=== PATIENT | female | born 1980 | race Caucasian/White ===

== ENCOUNTER 2021-08-19 05:23 | Emergency (ER) | payer OTHER, MEDICAID, SELFPAY ==
[2021-08-19 05:47] VITALS: BP 138/64; PULSE 87; RESP 17; TEMP 36.6; O2SAT 100; BMI 25.1
--- NOTE | 2021-08-19 06:07 | ED_ITS ---
HPI - Dental/Oral General Chief complaint: Dental/Oral Stated complaint: covid + tooth pain and jaw pain left side Time Seen by Provider: 08/19/21 05:50 Source: patient Mode of arrival: Ambulatory Limitations: no limitations History of Present Illness HPI Narrative: This is a 41-year-old female who denies other medical issues but did test positive for COVID in the past 6 days who presents with complaint of worsening dental pain. Patient states she is had dental issues for several months, she missed her appointment for dental extraction about a month ago she is scheduled in about another month to have the tooth extracted has had increasing pain with some localized swelling. She was having fevers this week but they have stopped in the last 2 days. She has not had any facial swelling, no redness skin color changes. She has not had any swelling of her airway, tongue or underneath the tongue. No changes to speech. No nausea or vomiting. No other GI or urinary symptoms. She is tried [id number] migraine medication with minimal improvement and Anbesol which she states makes it feel worse. Patient states she is allergic to penicillin but has had amoxicillin in the past without issue. She denies any other daily medications. Related Data Home Medications Medication Instructions Recorded Confirmed Fluoxetine Hydrochloride 20 mg PO QDAY ##0 02/26/11 (FLUOXETINE) NAPROXEN (NAPROSYN) 500 mg PO BIDCC ##0 02/26/11 Previous Rx's Medication Instructions Recorded THYROID (#ARMOUR THYROID) 30 mg PO Q DAY #30 tabs 03/27/11 Trazodone Hydrochloride (TRAZODONE) 50 mg PO HS #30 tabs 03/27/11 amoxicillin 500 mg tablet 500 mg PO TID #30 tabs 08/19/21 Allergies Allergy/AdvReac Type Severity Reaction Status Date / Time Penicillins Allergy Verified 08/19/21 05:47 Review of Systems Review of Systems ROS Unobtainable: All systems reviewed & are unremarkable except as noted in HPI and below Patient History Social History Smoking Status: Current every day smoker Exam Narrative Exam Narrative: GEN: Female, alert and oriented x 3, patient appears to be in mild distress. HEENT: Atraumatic, pupils are equal round reactive to light, extraocular movements are intact, nares are clear, TMs are clear with no fluid, there is no conjunctival pallor. Throat is clear without any exudates, erythema, tonsillar enlargement or uvular deviation, patient has poor dentition throughout. Tooth #30 does appear to have cracked. There is some mild swelling but no fluctuence or fluid collection. HEART: Regular rate and rhythm without murmur, clicks, rubs. No carotid bruits, pulses are equal in upper and lower extremities LUNGS:Lungs clear to auscultation, no wheezes, rales, crackles, chest moves symmetrically ABD:bowel sounds normal, soft, non-tender, no guarding, rebound, rigidity, no masses noted, no hepatosplenomegaly MSCL: Non-tender, full range of motion, normal gait NEURO:CN 2-12 intact, sensation normal Initial Vital Signs Initial Vital Signs: Vital Signs Temperature 98 F 08/19/21 05:47 Pulse Rate 87 08/19/21 05:47 Respiratory Rate 17 08/19/21 05:47 Blood Pressure 138/64 08/19/21 05:47 Pulse Oximetry 100 08/19/21 05:47 Oxygen Delivery Method 08/19/21 05:47 Course Orders Ordered: Discontinued Medications Amoxicillin (Amoxicillin 250 Mg Capsule) 500 mg PO NOW ONE Stop: 08/19/21 06:15 Last Admin: 08/19/21 06:19 Dose: 500 mg Documented By: NOHEMY Ketorolac Tromethamine (Ketorolac 30 Mg/Ml Vial) 30 mg IM NOW ONE Stop: 08/19/21 06:15 Last Admin: 08/19/21 06:20 Dose: 30 mg Documented By: NOHEMY Vital Signs Vital signs: Vital Signs - 8 hr 08/19/21 05:47 08/19/21 06:43 Temperature 98 F Pulse Rate 87 Respiratory Rate 17 15 Blood Pressure 138/64 Pulse Oximetry 100 99 Oxygen Delivery Method Room Air Room Air MDM - Dental/Oral MDM Narrative Medical decision making narrative: This is a 41-year-old female who presents with complaint of increasing dental pain. Patient has had recent COVID infection she states fevers have broke she feels that she is starting to improve. She was supposed to have 1 of her teeth extracted on he left but missed that appointment and has had increasing pain for the past 2 months which became too intense today and she presents for evaluation. Patient appears to have some localized infection and was covered with an oral antibiotic. Discharge Plan Departure Patient Disposition: Home Clinical Impression: Dental abscess Instructions: DI for Dental Pain Activity Restrictions/Additional Instructions: Follow up with your dentist. Take antibiotics until gone. You can take Tylenol up to a 1000 mg every 6 hours and/or ibuprofen up to 600 mg every 6 hours. Prescription for antibiotics sent to [facility] in [place]. Please return for new fevers, increasing swelling, redness, difficulty breathing, persistent vomiting, rapidly worsening symptoms or other new or concerning changes. Prescriptions: New amoxicillin 500 mg tablet 500 mg PO TID Qty: 30 0RF No Action Fluoxetine Hydrochloride (FLUOXETINE) 20 mg PO QDAY Qty: 0 NAPROXEN (NAPROSYN) 500 mg PO BIDCC Qty: 0 THYROID (#ARMOUR THYROID) 30 mg PO Q DAY Qty: 30 2RF Trazodone Hydrochloride (TRAZODONE) 50 mg PO HS Qty: 30 0RF Referrals: Magdalena Childers DO [Primary Care Provider] - Visit Report Forms: Patient Portal/API
[2021-08-19] MEDS: AMOXICILLIN 250 MG CAPSULE 500 MG PO (06:19)
[2021-08-19] MEDS: KETOROLAC 30 MG/ML VIAL IM (06:20)
[2021-08-19 06:43] VITALS: RESP 15; O2SAT 99
== END 2021-08-19 06:44 | disposition home or self-care (01) ==
PROVIDERS: Emergency Provider Emergency Medicine; Family Provider Family Medicine; PCP Family Medicine
DX: K04.7 Periapical abscess without sinus (principal)
CPT/HCPCS: 96372; 99283; J1885

== ENCOUNTER → 2024-03-26 17:33 | Outpatient (CLI) | payer OTHER, SELFPAY ==
[2024-03-26 18:41] LABS: Pregnancy Test Urine Negative (Negative)
[2024-03-26 19:16] LABS: COVID-19 CEPHEID 4-PLEX PCR Negative (Negative); Influenza A - CEPHEID Flu A NEGATIVE (NEGATIVE); Influenza B - CEPHEID Flu B NEGATIVE (NEGATIVE); Respiratory Syncytial Virus Negative (Negative)
== END ==
PROVIDERS: Family Provider Family Medicine; PCP Family Medicine; Visit Provider Student in an Organized Health Care Education/Training Program
DX: N94.9 Unspecified condition associated with female genital organs and menstrual cycle (principal); N89.8 Other specified noninflammatory disorders of vagina; R51.9 Headache, unspecified; R10.2 Pelvic and perineal pain
CPT/HCPCS: 87635; 87400 ×2; 87420; 0241U; 81002; 81025; 87077; 87086; 87186; 87210

== ENCOUNTER 2024-11-12 18:17 | Emergency (ER) | payer OTHER, SELFPAY ==
[2024-11-12 18:25] VITALS: BP 135/67; PULSE 90; RESP 16; TEMP 36.4; O2SAT 100; BMI 23.7
== END 2024-11-13 02:08 | disposition left against medical advice (07) ==
PROVIDERS: Emergency Provider Emergency Medicine; Family Provider Family Medicine; PCP Family Medicine
CPT/HCPCS: 99281

== ENCOUNTER 2024-11-14 07:44 | Emergency (ER) | payer OTHER, SELFPAY ==
[2024-11-14] VITALS (9 sets, daily range): BP systolic 118–120; BP diastolic 75–76; PULSE 74–112; RESP 17; TEMP 36.6; O2SAT 98–100; BMI 23.7
[2024-11-14 08:31] LABS: Add Manual Diff / Slide Review NO; Hematocrit 40.6 % (36-46); Hemoglobin 13.8 g/dL (12.0-16.0); Lymphocytes Absolute Auto 1600 /uL (1100-4500); Mean Corpuscular HGB Conc 34.1 % (30-36); Mean Corpuscular Hemoglobin 30.5 PG (26-34); Mean Corpuscular Volume 89.3 fL (80-100); Platelet Count 452 X10^3/uL (150-400)
--- NOTE | 2024-11-14 08:44 | ED.FEMALEGU ---
HPI - Female Genitourinary General Chief complaint: Urogenital-Female Stated complaint: UTI Meds aren't working , Lower back pain Time Seen by Provider: 11/14/24 07:45 Source: patient Mode of arrival: Ambulatory History of Present Illness HPI Narrative: This is a 44-year-old female here with 5 days of urinary symptoms. States that 4 days ago she had a virtual visit and started on Macrobid 100 p.o. b.i.d.. She took 3 days of that and is not getting relief of her symptoms in fact believes that she is getting worse. Over the last couple of days in addition to her frequency and urgency she has developed some low abdominal pain and low back pain. She is not having fevers shaking chills or vomiting. She is status post tubal ligation no other previous abdominal surgeries. She was prescribed antibiotics on the basis of a virtual visit so there is no urine culture or urinalysis available associated with this episode. Related Data Previous Rx's ?Medication ?Instructions ?Recorded fluconazole 100 mg tablet 100 mg PO DAILY #1 tab 03/26/24 cefdinir 300 mg capsule 300 mg PO BID #14 caps 11/14/24 Allergies Allergy/AdvReac Type Severity Reaction Status Date / Time Penicillins Allergy Verified 11/12/24 18:26 Patient History tobacco type: cigarettes Exam Initial Vital Signs Initial Vital Signs: Vital Signs Temperature 97.8 F 11/14/24 07:50 Pulse Rate 95 H 11/14/24 07:50 Respiratory Rate 17 11/14/24 07:50 Blood Pressure 118/76 11/14/24 07:50 Pulse Oximetry 99 11/14/24 07:50 Oxygen Delivery Method Room Air 11/14/24 07:50 vital signs are reviewed Const General: cooperative and No acute distress [facility] Head: normocephalic and atraumatic Face and sinus: face symmetric Mouth: moist mucous membranes Eyes Pupils: PERRL EOM: EOM intact bilaterally Neck Neck: normal visual inspection, supple and No JVD Chest Chest: normal inspection of the chest Resp Effort & Inspection: normal respiratory effort and able to speak in complete sentences Auscultation: clear to auscultation bilaterally Cardio Rate: regular rate Rhythm: regular rhythm Heart Sounds: no murmurs Other: Normal heart rate GI Inspection: normal to inspection Palpation: soft Auscultation: normal bowel sounds Back/Spine/Pelvis Back: normal to inspection Skin General: no rashes or lesions noted and warm Neuro General: patient alert, patient oriented x3 and moves all extremities Speech: speech normal Extrem General: full ROM Psych Appearance: grossly normal Course Orders Ordered: ED Orders 11/14/24 08:15 Complete Blood Count AUTO DIFF Stat Comprehensive Metabolic Panel Stat Lipase Stat Urine Culture Stat Urine Microscopic Stat Discontinued Medications Ondansetron HCl (Ondansetron 4 Mg/2 Ml Inj) 4 mg IV NOW PRN PRN Reason: Nausea And Vomiting Ondansetron HCl (Ondansetron 4 Mg Odt) 4 mg PO NOW PRN PRN Reason: Nausea And Vomiting Vital Signs Vital signs: Vital Signs - 8 hr 11/14/24 09:00 11/14/24 09:30 11/14/24 10:00 Pulse Rate 93 H 74 82 Blood Pressure Pulse Oximetry 100 100 100 11/14/24 10:12 11/14/24 10:12 Pulse Rate 78 Blood Pressure 119/75 Pulse Oximetry 100 MDM - Female Genitourinary Lab Data Lab results narrative: CBC with diff and CMP are reassuring. Urinalysis showed some pyuria not clear evidence of infection. 11/14/24 08:15 11/14/24 08:15 Labs: Lab Results 11/14/24 Range/Units 08:15 WBC 7.1 (4.5-11.0) X10^3/uL RBC 4.55 (4.0-5.2) X10^6/uL Hgb 13.8 (12.0-16.0) g/dL Hct 40.6 (36-46) % MCV 89.3 (80-100) fL MCH 30.5 (26-34) PG MCHC 34.1 (30-36) % RDW 13.0 (11.6-14.8) % Plt Count 452 H (150-400) X10^3/uL Neut % (Auto) 64.4 (50-75) % Lymph % (Auto) 22.0 L (25-40) % [place] % (Auto) 9.3 (3-14) % Eos % (Auto) 3.6 (2-4) % Baso % (Auto) 0.7 (0-2) % Neut # (Auto) 4600 (9851-2241) /uL Lymph # (Auto) 1600 (1511-4033) /uL [place] # (Auto) 700 (0-900) /uL Eos # (Auto) 300 (0-450) /uL Baso # (Auto) 100 (0-100) /uL Sodium 138 (137-145) mmol/L Potassium 3.7 (3.4-5.1) mmol/L Chloride 101 (98-107) mmol/L Carbon Dioxide 28 (22-32) mmol/L BUN 12 (7-17) mg/dL Creatinine 0.91 (0.52-1.04) mg/dL Estimated GFR > 60 (>60) mL/min BUN/Creatinine Ratio 13.2 (6-22) Glucose 57 L (70-99) mg/dL Calcium 9.7 (8.4-10.2) mg/dL Total Bilirubin 0.3 (0.2-1.3) mg/dL AST 21 (14-36) IU/L ALT 14 (<35) IU/L Alkaline Phosphatase 86 (38-126) U/L Total Protein 8.4 H (6.3-8.2) g/dL Albumin 4.7 (3.5-5.0) g/dL Globulin 3.7 (1.7-4.1) g/dL Albumin/Globulin Ratio 1.3 (1.0-2.8) Lipase 94 (23-300) U/L Urine RBC 1-5/hpf (0-5/HPF) Urine WBC 1-5/hpf (0-5/HPF) Ur Squamous Epith Cells 1-5 /hpf (0-5/HPF) Urine Bacteria Occasional (0-1) (None) Ur Culture Indicated? TNP Vol Urine Centrifuged 10ml (spun) Point of Care Testing Test Results Negative Urine Dip Bedside Urine Glucose Negative Bedside Urine Bilirubin - Negative Bedside Urine Ketone - Negative Urine Specific [place] 1.015 Bedside Urine Occult Blood + Bedside Urine pH 6.0 Bedside Urine Protein +/- 15 Bedside Urine Urobilinogen - Negative Bedside Urine Nitrite - Negative Bedside Urine Leukocytes - Negative Esterase MDM Narrative Medical decision making narrative: 45-year-old female with a history of urinary tract infections and urinary symptoms. She is nontoxic, reports that she has been taking Macrodantin without improvement in her symptoms. Does not have convincing exam for pyelonephritis, given that she had been on antibiotics I will do about the possibility of a partially treated UTI. We discussed imaging to assess for less likely conditions such as appendicitis or diverticulitis. Patient preferred a trial of a different antibiotic and she will recheck if getting worse. She is advised to follow up with primary care. Also advised to return to emergency department if having increasing pain fevers etc. Discharge Plan Departure Patient Disposition: Home Clinical Impression: Urinary tract infection Activity Restrictions/Additional Instructions: As we discussed, your urinalysis does not clearly indicate a urinary tract infection however given your symptoms and history I think it is reasonable to start a different antibiotic than the Macrobid that you have been taking and see if that is helpful. I also recommend you see your primary care provider as soon as possible. If you are having fevers vomiting increasing pain recheck in the emergency department. Make sure you are getting adequate fluids. Prescriptions: New cefdinir 300 mg capsule 300 mg PO BID Qty: 14 0RF No Action fluconazole 100 mg tablet 100 mg PO DAILY Qty: 1 0RF Stand Alone Forms: Patient Portal/API
[2024-11-14 08:46] LABS: Alanine Aminotransferase 14 IU/L (<35); Albumin 4.7 g/dL (3.5-5.0); Albumin Globulin Ratio 1.3 (1.0-2.8); Alkaline Phosphatase 86 U/L (38-126); Blood Urea Nitrogen 12 mg/dL (7-17); Calcium 9.7 mg/dL (8.4-10.2); Carbon Dioxide 28 mmol/L (22-32); Chloride 101 mmol/L (98-107); Estimated Glomerular Filt Rate > 60 mL/min (>60); Globulin 3.7 g/dL (1.7-4.1); Glucose 57 mg/dL (70-99); HEMOLYSIS < 15 (0-50); Lipase 94 U/L (23-300); Potassium 3.7 mmol/L (3.4-5.1); Sodium 138 mmol/L (137-145); Total Protein 8.4 g/dL (6.3-8.2)
== END 2024-11-14 10:21 | disposition home or self-care (01) ==
PROVIDERS: Emergency Provider Emergency Medicine; Family Provider Family Medicine
DX: N39.0 Urinary tract infection, site not specified (principal); M54.50 Low back pain, unspecified; R10.30 Lower abdominal pain, unspecified
CPT/HCPCS: 36415; 80053; 81003; 81015; 81025; 83690; 85025; 87086; 99283